=== PATIENT | female | born 1955 | race Caucasian/White ===

== ENCOUNTER 2016-09-20 05:45 | Day surgery (SDC) | payer MEDICAID ==
[~2016-09-20] VITALS: Ht 172.7 cm; Wt 98.2 kg
[~2016-09-20 05:45] MED LIST: ALBUTEROL SULFATE 2.5 MG/0.5 ML NEB SOLUTION NEB ONE; AMLO-511 PO; ASPI81 PO; BENZOCAINE 20% 50 MCG/SPRAY 57 GM TP ONE; BUDE10.22 IH; HYDR25TA PO; LIDOCAINE HCL 2% 30 ML JELLY TP ONE; LIDOCAINE HCL 4% 50 ML SOLUTION TP ONE; LISI-661 PO; MONT10TA21 PO; NEBI5 PO; PRAV10TA39 PO; TIOT185 IH
[2016-09-20] MEDS ORDERED: SODIUM CHLORIDE 0.9% 1,000 ML IV ONE ×2 (06:06→06:15)
[2016-09-20] MEDS ORDERED: FentaNYL CITRATE-PF 100 MCG/2 ML VIAL ONE (07:21)
[2016-09-20] MEDS ORDERED: MIDAZOLAM HCL 2 MG/2 ML VIAL ONE (07:21)
[2016-09-20] MEDS ORDERED: MethylPREDNISolone SOD SUCC 125 MG/2 ML VIAL IVP ONE (08:30)
[2016-09-20] MEDS ORDERED: MethylPREDNISolone SOD SUCC 125 MG/2 ML VIAL ONE (08:40)
[2016-09-20] MEDS ORDERED: OXYGEN THERAPY IH SCH (20:00)
== END 2016-09-20 09:30 | disposition home or self-care (01) ==
LOC: SURGERY 05:45
PROVIDERS: ATTEND Internal Medicine Critical Care Medicine
DX: J38.4 Edema of larynx (principal); B37.0 Candidal stomatitis; I10 Essential (primary) hypertension; F17.210 Nicotine dependence, cigarettes, uncomplicated
CPT/HCPCS: 31623; 31624; 71010; 87015 ×2; 87070; 87101; 87147; 87205; 87220; 88108; 88312; J2250; J2930; J3010; J7030